=== PATIENT | male | born 1990 | race African-American/Black ===

== ENCOUNTER 2021-09-18 13:58 | Emergency (ER) | payer OTHER ==
[~2021-09-18] VITALS: Ht 170.2 cm; Wt 93.0 kg
[2021-09-18] MEDS ORDERED: PANTOPRAZOLE 40MG DR TABLET PO ONE (16:15)
[2021-09-18 17:42] LABS: HEMATOCRIT. 46.3 % (42.0-52.0); HEMOGLOBIN. 15.3 g/dL (14.0-18.0); MEAN CORPUSCULAR HEMOGLOBIN 29.4 pg (28.0-32.0); MEAN CORPUSCULAR VOLUME 89.1 fL (80.0-94.0); MEAN PLATELET VOLUME 9.1 fl (7.4-10.4); PLATELET 157 x1000/uL (130-400); RED CELL DISTRIBUTION WIDTH 13.1 % (11.6-14.6)
[2021-09-18 17:52] LABS: CHLORIDE 100 mEq/L (98-107)
[2021-09-18] MEDS ORDERED: PANT20TA17 MT (18:13)
[2021-09-18 18:59] VITALS: BP 127/86
[2021-09-18 22:10] LABS: PLATELET ESTIMATE NORMAL
== END 2021-09-18 19:00 | disposition home or self-care (01) ==
LOC: ER 13:58
DX: K62.5 Hemorrhage of anus and rectum (principal); Z86.16 Personal history of COVID-19
CPT/HCPCS: 36415; 80053; 85025; 93005; 99284